=== PATIENT | male | born 1985 | race Caucasian/White ===

== ENCOUNTER 2018-12-24 13:00 | Outpatient (RCR) | payer OTHER | END 2018-12-26 | LOC: PT 13:00 | PROVIDERS: ATTEND Family Medicine | DX: M51.27 Other intervertebral disc displacement, lumbosacral region (principal) ==

== ENCOUNTER 2019-01-10 12:59 | Outpatient (RCR) | payer OTHER | END 2019-01-26 | LOC: PT 12:59 | PROVIDERS: ATTEND Family Medicine | DX: M51.27 Other intervertebral disc displacement, lumbosacral region (principal) | CPT/HCPCS: 97139 ==